=== PATIENT | female | born 1955 | race Asian ===

== ENCOUNTER 2021-08-31 16:09 | Inpatient (IN) | payer MEDICARE, OTHER ==
[~2021-08-31] VITALS: Ht 147.3 cm; Wt 56.2 kg
[2021-08-31] VITALS (228 sets, daily range): BP systolic 78–121; BP diastolic 42–76; PULSE 77–93; TEMP 98.4–98.5; O2SAT 97–100
[~2021-08-31 16:09] MED LIST: CALCIUM WITH D1 CTB PO; DETROL LA4 PO; FOSAMAX70 MG PO; GUAIFENESIN AC120 ML PO; MIRAPEX0.5 MG PO; OMEGA 31000 MG PO; OMEPRAZOLE20 MG PO; PRINIVIL20 MG PO; RANITIDINE150 MG PO; SAVELLA50 MG PO; ZYRTEC10 M1 PO
[2021-08-31] MEDS ORDERED: ZETIA 10MG TAB10 MG PO (18:02)
[2021-08-31] MEDS ORDERED: GLUCOPHAGE500 MG/TAB PO (18:06)
[2021-08-31] MEDS ORDERED: SENNA-S 50 MG-81 TAB PO (18:13)
[2021-08-31 18:55] LABS: MEAN CELL VOLUME 106 fl (80.0-100.0); MEAN CORPUSCULAR HGB CONC 31 g/dl (33.0-37.0); MEAN PLATELET VOLUME 9.8 fl (7.4-10.4); PLATELET COUNT 50 K/mm3 (130-400); RED BLOOD COUNT 1.32 M/mm3 (4.10-5.30); REDCELL DISTRIBUTION WIDTH-CV 24.6 % (11.5-14.5)
[2021-08-31 19:11] LABS: CALCIUM 9.4 mg/dL (8.4-10.2); POTASSIUM 5.7 mmol/L (3.5-4.5)
[2021-08-31 19:14] LABS: HEMOGLOBIN 4.3 g/dl (12.5-16.0); MEAN CORPUSCULAR HEMOGLOBIN 33 pg (27-31)
[2021-08-31 19:17] LABS: CREATININE, serum 1.89 mg/dL (0.57-1.11)
[2021-08-31 19:23] LABS: BAND 4 % (0-10); HYPOCHROMIA 3+; LYMPHOCYTE 92 % (20.0-51.0); MYELOCYTE 1 % (0-0); NEUTROPHILS 1 % (42.0-75.2); NUCLEATED RED BLOOD CELL 1 (0-6); PLATELET ESTIMATE DECREASED (NORMAL)
[2021-08-31 19:25] LABS: STOMATOCYTE 1+
[2021-08-31 19:26] LABS: TEAR DROP CELLS 1+
[2021-08-31 19:27] LABS: ANISOCYTOSIS 2+
[2021-08-31 19:54] LABS: ARTERIAL BLD GAS O2 SATURATION 95.6 % (92-100); ARTERIAL BLD GAS TCO2 CT 14.6; ARTERIAL BLOOD GAS BASE EXCESS -10.8 (-2-2); ARTERIAL BLOOD GAS HCO3 13.8 meq/L (22-26); ARTERIAL BLOOD GAS PCO2 24.7 mmHg (35-45); ARTERIAL BLOOD GAS PO2 87.6 mmHg (80-100); ARTERIAL BLOOD GAS pH 7.37 (7.35-7.45)
[2021-08-31 20:01] LABS: INR 1.4 (0.8-3.0); PROTHROMBIN TIME 15.6 SECONDS (9.7-12.8)
[2021-08-31 20:02] LABS: ALANINE AMINOTRANSFERASE 30 U/L (0-55); ALBUMIN 3.6 gm/dL (3.4-4.8); ALKALINE PHOSPHATASE 80 U/L (40-150); AST,SGOT 54 U/L (5-34); BILIRUBIN,DIRECT 0.3 mg/dL (0.0-0.5); BILIRUBIN,TOTAL 0.7 mg/dL (0.2-1.2); PHOSPHOROUS 5.7 mg/dL (2.3-4.7); TOTAL PROTEIN 6.7 gm/dL (6.2-8.1)
[2021-08-31 20:27] LABS: TROPONIN-I < 0.010 ng/mL (0.00-0.033)
[2021-08-31 20:35] LABS: FIBRINOGEN < 100 mg/dL (200-450)
[2021-08-31 22:15] LABS: COLLECTION METHOD CLEAN CATCH
[2021-08-31 22:24] LABS: MUCOUS Present (NOT PRESENT); PH 6 (5-8); SQUAMOUS EPITHELIAL 0-2 /hpf (0-10); URINE APPEARANCE Clear (CLEAR/HAZY); URINE BACTERIA None Seen /hpf (NONE SEEN); URINE BILIRUBIN Negative (NEGATIVE); URINE BLOOD Negative (NEGATIVE); URINE COLOR Straw (YELLOW); URINE GLUCOSE Negative (NEGATIVE); URINE KETONE Negative (NEGATIVE); URINE LEUKOCYTE ESTERASE Negative (NEGATIVE); URINE NITRATE Negative (NEGATIVE); URINE PROTEIN(semi-quant) Negative (NEGATIVE); URINE UROBILINOGEN Negative (NEGATIVE)
[2021-09-01] VITALS (13 sets, daily range): BP systolic 95–124; BP diastolic 56–76; PULSE 81–90; TEMP 98.4–98.5; O2SAT 76–100
[2021-09-01 11:21] LABS: PATHOLOGY DIFF REVIEW DISAGREE
== END 2021-09-01 00:45 | disposition short-term general hospital (02) | DRG 812 ==
LOC: ICU 16:09
PROVIDERS: Internal Medicine Critical Care Medicine; ADMIT Internal Medicine
DX: D64.9 Anemia, unspecified (principal); N17.9 Acute kidney failure, unspecified; E87.2 Acidosis; R65.10 Systemic inflammatory response syndrome (SIRS) of non-infectious origin without acute organ dysfunction; I12.9 Hypertensive chronic kidney disease with stage 1 through stage 4 chronic kidney disease, or unspecified chronic kidney disease; E11.22 Type 2 diabetes mellitus with diabetic chronic kidney disease; N18.9 Chronic kidney disease, unspecified; K21.9 Gastro-esophageal reflux disease without esophagitis; D69.6 Thrombocytopenia, unspecified; E87.5 Hyperkalemia; E83.39 Other disorders of phosphorus metabolism; Z79.84 Long term (current) use of oral hypoglycemic drugs
CPT/HCPCS: 99223-AI; C9113; J0692; J1815; J7030; P9016